=== PATIENT | male | born 1950 | race Caucasian/White ===

== ENCOUNTER 2022-12-18 17:52 | Emergency (ER) | payer BC, MEDICAID ==
[~2022-12-18] VITALS: Ht 177.8 cm; Wt 91.0 kg
[2022-12-18 22:36] VITALS: BP 152/84
[2022-12-20] MEDS ORDERED: INSU100I73 (05:25)
== END 2022-12-18 23:15 | disposition home or self-care (01) ==
LOC: ER 17:52
DX: R40.0 Somnolence (principal); I50.9 Heart failure, unspecified; E78.00 Pure hypercholesterolemia, unspecified
CPT/HCPCS: 99283

== ENCOUNTER 2022-12-19 02:31 | Emergency (ER) | payer BC, MEDICAID ==
[~2022-12-19] VITALS: Ht 175.3 cm; Wt 98.0 kg
[2022-12-19 02:40] VITALS: BP 129/71
[2022-12-20] MEDS ORDERED: INSU100I73 (05:25)
[2022-12-20] MEDS ORDERED: IOHEXOL-300 100 ML BOTTLE ONE (13:21)
== END 2022-12-19 11:18 | disposition left against medical advice (07) ==
LOC: ER 02:31
DX: Z53.21 Procedure and treatment not carried out due to patient leaving prior to being seen by health care provider (principal)
CPT/HCPCS: 99281; Q9967

== ENCOUNTER 2022-12-30 00:58 | Emergency (ER) | payer BC, MEDICAID ==
[~2022-12-30] VITALS: Ht 177.8 cm; Wt 90.0 kg
[~2022-12-30 00:58] MED LIST: INSU100I73
[2022-12-30 01:50] VITALS: BP 138/99
== END 2022-12-30 01:52 | disposition home or self-care (01) ==
LOC: ER 00:58
DX: Z00.00 Encounter for general adult medical examination without abnormal findings (principal)
CPT/HCPCS: 99283